=== PATIENT | female | born 1935 | race Caucasian/White ===

== ENCOUNTER 2017-05-02 18:48 | Observation (INO) | payer MEDICARE, OTHER ==
[2017-05-02] MEDS ORDERED: Metoprolol Tartrate 50 MG Tab PO ONE (19:01)
[2017-05-02] MEDS ORDERED: Isosorbide Dinitrate 10 MG Tab PO ONE (19:02)
[2017-05-02] MEDS ORDERED: Lisinopril 10 MG Tab PO ONE (19:02)
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
[2017-05-02] MEDS ORDERED: Bisacodyl 5 MG Tab PO PRN (21:40)
[2017-05-02] MEDS ORDERED: oxyCODONE 5 MG Tab PO PRN (21:40)
[2017-05-02] MEDS ORDERED: LORazepam 2 MG/ML SDV IV PRN (21:40)
[2017-05-02] MEDS ORDERED: Albuterol 0.083% 2.5 MG/3 ML Neb Soln NEB PRN (21:40)
[2017-05-02] MEDS ORDERED: Temazepam 15 MG Cap PO PRN (21:40)
[2017-05-02] MEDS ORDERED: Docusate Sodium 100 MG Cap PO PRN (21:40)
[2017-05-02] MEDS ORDERED: Ondansetron 4 MG/2 ML SDV IV PRN (21:40)
[2017-05-02] MEDS ORDERED: Morphine 2 MG/ML Syringe IVPUSH PRN (21:40)
[2017-05-02] MEDS ORDERED: Acetaminophen 325 MG Tab PO PRN (21:40)
[2017-05-02] MEDS ORDERED: Famotidine 20 MG Tab PO SCH (21:40)
[2017-05-02] MEDS ORDERED: Ondansetron 4 MG Tab.DIS PO PRN (21:40)
[2017-05-02] MEDS ORDERED: cefTRIAXone 1 GM in Sodium Chloride 0.9% 50 ML IV SCH (22:00)
[2017-05-02] MEDS: Melatonin 3 MG Tab PO PRN (22:06)
[2017-05-02] MEDS ORDERED: FLU Vacc TS 2017-18 (65yr UP)/PF 180 MCG/0.5 ML Syringe IM ONE (22:30)
[2017-05-02] MEDS: Sodium Chloride 0.9% 1,000 ML IV SCH (23:09)
[2017-05-03] MEDS ORDERED: Haloperidol Lactate 5 MG/ML SDV IVPUSH PRN (08:20)
[2017-05-03] MEDS: Sodium Chloride 0.9% 1,000 ML IV SCH (08:41)
[2017-05-03] MEDS: Divalproex Sodium Delayed-Release 250 MG Tab.CR PO SCH ×2 (08:45→16:29)
[2017-05-03] MEDS ORDERED: Lisinopril 10 MG Tab PO SCH (09:00)
[2017-05-03] MEDS ORDERED: Metoprolol Tartrate 50 MG Tab (PTOM) PO SCH (09:00)
[2017-05-03] MEDS ORDERED: EZETIMIBE PO SCH ×2 (09:00→21:00)
[2017-05-03] MEDS ORDERED: SIMVASTATIN PO SCH ×2 (09:00→21:00)
[2017-05-03] MEDS ORDERED: ISOSORBIDE DINITRATE 20 MG PO SCH (09:10)
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
[2017-05-03] MEDS ORDERED: LISINOPRIL 5 MG PO SCH (13:00)
[2017-05-03] MEDS ORDERED: Enoxaparin 40 MG/0.4 ML Syringe SUBCUT SCH (14:00)
[2017-05-03] MEDS ORDERED: FLU Vacc TS 2017-18 (65yr UP)/PF 180 MCG/0.5 ML Syringe IM ONE (14:00)
[2017-05-03] MEDS: Aspirin 81 MG Tab.EC PO SCH (14:38)
[2017-05-03] MEDS: Famotidine 20 MG Tab (PTOM) PO SCH (14:38)
[2017-05-03] MEDS: Multivitamins with Iron/Calcium/Folic Acid/Minerals Tab PO SCH (14:38)
[2017-05-03] MEDS: Metoprolol Tartrate 25 MG Tab (PTOM) PO SCH ×2 (14:39→20:55)
[2017-05-03] MEDS: LISINOPRIL 5 MG PO SCH ×2 (14:45→20:56)
[2017-05-03] MEDS ORDERED: Haloperidol 1 MG Tab PO PRN (15:35)
[2017-05-03] MEDS: Cefdinir 300 MG Cap PO SCH (20:58)
[2017-05-03] MEDS ORDERED: Ezetimibe 10 MG Tab PO SCH (21:00)
[2017-05-03] MEDS: Melatonin 3 MG Tab PO PRN (21:00)
[2017-05-03] MEDS ORDERED: Simvastatin 20 MG Tab PO SCH (21:00)
[2017-05-04] MEDS: Divalproex Sodium Delayed-Release 250 MG Tab.CR PO SCH (08:51)
[2017-05-04] MEDS: Aspirin 81 MG Tab.EC PO SCH (08:51)
[2017-05-04] MEDS: Metoprolol Tartrate 25 MG Tab (PTOM) PO SCH (08:51)
[2017-05-04] MEDS: Multivitamins with Iron/Calcium/Folic Acid/Minerals Tab PO SCH (08:51)
[2017-05-04] MEDS: Cefdinir 300 MG Cap PO SCH (08:52)
[2017-05-04] MEDS: Famotidine 20 MG Tab (PTOM) PO SCH (08:52)
[2017-05-04] MEDS: LISINOPRIL 5 MG PO SCH (08:52)
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
[2017-05-04 10:42] VITALS: BP 142/63
== END 2017-05-04 13:30 | disposition home or self-care (01) ==
LOC: JP.ED 18:48 → JP.MS 20:37
PROVIDERS: ADMIT Hospitalist; ATTEND Hospitalist
DX: F05 Delirium due to known physiological condition (principal); F03.91 Unspecified dementia, unspecified severity, with behavioral disturbance; I12.9 Hypertensive chronic kidney disease with stage 1 through stage 4 chronic kidney disease, or unspecified chronic kidney disease; N18.3 Chronic kidney disease, stage 3 (moderate); E78.00 Pure hypercholesterolemia, unspecified; G45.9 Transient cerebral ischemic attack, unspecified; Z79.82 Long term (current) use of aspirin; Z79.899 Other long term (current) drug therapy; Z95.5 Presence of coronary angioplasty implant and graft; Z23 Encounter for immunization
CPT/HCPCS: 36415; 80048; 81001; 84443; 84484; 85025; 85027; 87086; 90662; 96361; 96372; 96374; 97165; 99284; 99285; A9270; G0008; G0378; J0696; J1650; J7040; J7050; 99217; 99220; 99225; J7030

== ENCOUNTER 2017-07-05 13:31 | Emergency (ER) | payer MEDICARE, OTHER ==
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
[2017-07-05 14:03] VITALS: BP 211/51
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
[2017-07-05] MEDS ORDERED: Morphine 2 MG/ML Syringe IVPUSH ONE (15:32)
[2017-07-05] MEDS ORDERED: Morphine 2 MG/ML Syringe ONE (15:33)
== END 2017-07-05 16:22 | disposition other institution (70) ==
LOC: JP.ED 13:31
DX: S12.100A Unspecified displaced fracture of second cervical vertebra, initial encounter for closed fracture (principal); E78.00 Pure hypercholesterolemia, unspecified; I10 Essential (primary) hypertension; Z79.82 Long term (current) use of aspirin; Z79.899 Other long term (current) drug therapy; V43.62XA Car passenger injured in collision with other type car in traffic accident, initial encounter
CPT/HCPCS: 71045; 72125; 96374; 99285; J2270